=== PATIENT | female | born 1960 | race Caucasian/White ===

== ENCOUNTER 2020-04-24 13:41 | Inpatient (IN) ==
[2020-04-24] MEDS ORDERED: CeFAZolin Syr 2,000MG/20 ML 2,000 MG/20 ML SYRINGE IVPB ONE (14:02)
[2020-04-24] MEDS ORDERED: Ringers Solution, Lactated 1,000 ML IVC SCH ×2 (14:15→19:04)
[2020-04-24] MEDS ORDERED: Acetaminophen IV 1,000 MG/100 ML INFUS..BTL IVPB ONE (15:26)
[2020-04-24] MEDS ORDERED: *HR* OxyCODONE Immed Rel 5 MG TABLET PO PRN ×2 (15:27→19:04)
[2020-04-24] MEDS ORDERED: *HR* Labetalol 20 MG/4 ML SYRINGE IVP PRN (15:27)
[2020-04-24] MEDS ORDERED: Pregabalin 75 MG CAPSULE PO ONE (15:27)
[2020-04-24] MEDS ORDERED: Famotidine 20 MG/2 ML VIAL IVP ONE (15:27)
[2020-04-24] MEDS ORDERED: *HR* Promethazine 25 MG/ML VIAL IVP PRN (15:27)
[2020-04-24] MEDS ORDERED: *HR* HYDROmorphone (PF) 1 MG/ML SYRINGE IVP PRN (15:27)
[2020-04-24] MEDS ORDERED: *HR* Succinylcholine 200 MG/10 ML VIAL IVP ONE (16:28)
[2020-04-24] MEDS ORDERED: Lidocaine -MPF 2% 2 ML VIAL ONE (16:29)
[2020-04-24] MEDS ORDERED: *HR* Propofol 200 MG/20 ML VIAL IVP ONE (16:29)
[2020-04-24] MEDS ORDERED: Ondansetron 4 MG/2 ML VIAL ONE (16:29)
[2020-04-24] MEDS ORDERED: Dexamethasone 4 MG/ML VIAL ONE (16:29)
[2020-04-24] MEDS ORDERED: Lidocaine -MPF 4% 5 ML AMPUL ONE (16:30)
[2020-04-24] MEDS ORDERED: *HR* Midazolam HCl 2 MG/2 ML VIAL ONE (16:33)
[2020-04-24] MEDS ORDERED: Ropivacaine/PF 0.5% 30 ML VIAL ONE (16:34)
[2020-04-24] MEDS ORDERED: *HR* FentaNYL (PF) 100 MCG/2 ML VIAL ONE (16:34)
[2020-04-24] MEDS ORDERED: Vancomycin 1,000 MG VIAL ONE (16:47)
[2020-04-24] MEDS ORDERED: Ethanol\\Acetic Acid\\Na Ace\\Ben 1,000 ML IRRIG.SOLN IR ONE (16:47)
[2020-04-24] MEDS ORDERED: *HR* PHENYLEPHRINE 1,000 MCG/10 ML SYRINGE IVP ONE (17:23)
[2020-04-24] MEDS ORDERED: *HR* Enoxaparin 30 MG/0.3 ML SYRINGE SQ SCH (18:00)
[2020-04-24] MEDS ORDERED: *HR* OxyCODONE/APAP 5/325 TABLET PO PRN (19:04)
[2020-04-24] MEDS ORDERED: ALPRAZolam 0.5 MG TABLET PO PRN (19:04)
[2020-04-24] MEDS ORDERED: D5% in Water 1,000 ML IVC PRN (19:04)
[2020-04-24] MEDS ORDERED: Dextrose Gel 15 GM/37.5 ML TUBE PO PRN ×2 (19:04)
[2020-04-24] MEDS ORDERED: *HR* Dextrose 50 % in Water (Vial) 50 ML VIAL IVP PRN (19:04)
[2020-04-24] MEDS ORDERED: Naloxone 0.4 MG/ML INJ IVP PRN (19:04)
[2020-04-24] MEDS ORDERED: CeFAZolin 2 GM/120 ML BAG IVPB SCH (19:04)
[2020-04-24] MEDS ORDERED: MOM Conc 10 ML UD.LIQ PO PRN (19:04)
[2020-04-24] MEDS ORDERED: Ondansetron 4 MG/2 ML VIAL IVP PRN (19:04)
[2020-04-24] MEDS ORDERED: Sennosides 8.6 MG TABLET PO PRN (19:04)
[2020-04-24] MEDS ORDERED: Insulin LISPRO 300 UNITS/3 ML VIAL SQ SCH ×2 (19:04→21:00)
[2020-04-24 19:12] LABS: Hematocrit 35.6 % (35.3-44.9); Hemoglobin 11.9 g/dL (11.5-15.4)
[2020-04-24] MEDS ORDERED: Ibuprofen 800 MG TABLET PO SCH (21:00)
[2020-04-24 22:13] VITALS: BP 121/69
[2020-04-25] MEDS ORDERED: *HR* Enoxaparin 30 MG/0.3 ML SYRINGE SQ SCH (06:00)
[2020-04-25] MEDS ORDERED: Multivit/Ca/Min/Fe/FA 1 TAB TABLET PO SCH (09:00)
[2020-04-25] MEDS ORDERED: NON-FORMULARY MEDICATION 1 EACH EACH (Turmeric Root Extract [Turmeric] 500 MG) PO SCH (09:00)
[2020-04-25] MEDS ORDERED: Lurasidone 20 MG TABLET PO SCH (09:00)
[2020-04-25] MEDS ORDERED: NON-FORMULARY MEDICATION 1 EACH EACH (Omega-3/Dha/Epa/Fish Oil [Fish Oil 500 Mg Softgel] 1 PO SCH (09:00)
== END 2020-04-24 21:32 | disposition home or self-care (01) | DRG 483 ==
LOC: SAMDAY 13:41 → 3NENU 19:06 → SAMDAY 21:30 → 3NENU 21:31
PROVIDERS: ADMIT Orthopaedic Surgery; ATTEND Orthopaedic Surgery